=== PATIENT | female | born 1995 | race Caucasian/White ===

== ENCOUNTER 2016-06-13 09:40 | Emergency (ER) | payer OTHER ==
[~2016-06-13] VITALS: Ht 160 cm; Wt 108.0 kg
[~2016-06-13 09:40] MED LIST: ACYC800T57 PO; IBUP-1542 PO; METF500T4
[2016-06-13 10:14] VITALS: Ht 160 cm; Wt 108.0 kg
--- NOTE | 2016-06-13 12:15 | ERA ---
ER Documentation Chief Complaint Date/Time DATE: 06/13/16 TIME: 12:11 Chief Complaint LEFT ANKLE PAIN,SWELLING HPI This is a 21-year-old female who presents one day after twisting her ankle while walking. Patient reports that the ankle is painful worse with movement. Patient denies any swelling and has not taken any medications at this point to relieve the pain. Patient denies any other manifestations and does not have any other complaints this time. ROS All systems reviewed and are negative except as per history of present illness. Medications Home Meds Active Scripts Ibuprofen* (Motrin*) 600 Mg Tab, 600 MG PO Q6H Y for PAIN AND OR ELEVATED TEMP, #30 TAB Prov:JENNIFER STOKES PA-C 06/13/16 Ibuprofen* (Motrin*) 600 Mg Tab, 600 MG PO Q6, #20 TAB Prov:PRAMOD FRY PA-C 07/23/15 Acyclovir* (Zovirax*) 800 Mg Tablet, 400 MG PO TID for 10 Days, TAB Prov:PRAMOD FRY PA-C 07/23/15 Ibuprofen* (Motrin*) 600 Mg Tab, 600 MG PO Q6, #30 TAB Prov:JULIAN ROSE PA-C 03/20/15 Reported Medications Metformin* (Glucophage*) 500 Mg Tab 10/22/12 Allergies Allergies: Coded Allergies: No Known Allergy (Unverified , 10/22/12) PMhx/Soc History of Surgery: No Anesthesia Reaction: No Hx Neurological Disorder: No Hx Respiratory Disorders: No Hx Cardiac Disorders: No Hx Psychiatric Problems: No Hx Miscellaneous Medical Probl: Yes (diabetes) Hx Alcohol Use: No Hx Substance Use: No Hx Tobacco Use: No Physical Exam Vitals Vital Signs Date Time Temp Pulse Resp B/P Pulse Ox O2 Delivery O2 Flow Rate FiO2 06/13/16 10:14 98.5 67 18 133/81 98 Physical Exam Const: Morbidly obese 21-year-old female who is able to ambulate and stay in the [facility] on presentation Head: Atraumatic Eyes: Normal Conjunctiva ENT: Normal External Ears, Nose and Mouth. Neck: Full range of motion..~ No meningismus. Resp: Clear to auscultation bilaterally Cardio: Regular rate and rhythm, no murmurs Abd: Soft, non tender, non distended. Normal bowel sounds Skin: No petechiae or rashes Back: No midline or flank tenderness Ext: No cyanosis, or edema. There is mild tenderness palpation on the lateral aspect of the left ankle near the malleolus. Negative squeeze test for Achilles tendon rupture. Anterior drawer test of both ankles is unremarkable. There is no laxity and there is full range of motion in all directions the ankles bilaterally. Neur: Awake and alert. Neurovascularly intact bilaterally. Psych: Normal Mood and Affect Procedures/MDM 21-year-old overweight female presenting one day after twisting left ankle. Physical exam was unremarkable and neurovascularly intact. There is mild tenderness to palpation on the lateral aspect of the ankle around the malleolus. Achilles intact with a negative squeeze test. XR of the affected showed a small avulsion fracture at the lateral malleolus. At this time I am unable to rule out tendon or ligamentous injuries. The patient will be discharged with crutches and medication for pain/swelling. Will refer to an campaign specialist and have recommended that she follow-up with the primary care provider in the next 1-3 days. Departure Diagnosis: Primary Impression: Sprain and strain Additional Impressions: Left ankle sprain Qualified Code: S93.402A - Sprain of left ankle, unspecified ligament, initial encounter Mild ankle sprain Qualified Code: S93.402A - Mild ankle sprain, left, initial encounter Left malleolar fracture Qualified Code: S82.892A - Left malleolar fracture, closed, initial encounter Closed left malleolar fracture Qualified Code: S82.892A - Closed left malleolar fracture, initial encounter Condition: Stable Additional Instructions: Follow up with your PCP within the next 1-3 days for a more thorough evaluation and a possible referral to a specialist. Return the the emergency department immediately if symptoms worsen or change. If you have any questions regarding medications, ask your pharmacist or us before you leave. If any adverse reactions occur while taking your medications, discontinue the treatment and return to the emergency department immediately. Take your medications as directed, and complete the entire course of treatment. Follow-up with campaign specialist for further evaluation and possible imaging. JENNIFER STOKES PA-C Jun 13, 2016 12:15
--- NOTE | 2016-06-13 14:14 | RADRPT ---
PROCEDURE: XR Ankle. CLINICAL INDICATION: Ankle trauma/injury TECHNIQUE: AP, oblique and lateral views of the left ankle were performed. COMPARISON: None. FINDINGS: There is a small avulsion fracture at the tip of the lateral malleolus which is age indeterminate. The ankle mortise is symmetric. No gross soft tissue swelling is seen. IMPRESSION: Small avulsion fracture at the tip of the lateral malleolus, age indeterminate. RPTAT: VV .Marcelo Galindo MD, Date Time Electronically viewed and signed by .Marcelo Galindo MD, on 06/13/2016 14:14 .O/
[2016-06-13] MEDS ORDERED: IBUP-1542 PO (14:24)
== END 2016-06-13 15:05 | disposition home or self-care (01) ==
LOC: FTE 09:40
DX: S93.402A Sprain of unspecified ligament of left ankle, initial encounter (principal); S82.892A Other fracture of left lower leg, initial encounter for closed fracture; E11.9 Type 2 diabetes mellitus without complications; X50.1XXA Overexertion from prolonged static or awkward postures, initial encounter; Y92.9 Unspecified place or not applicable; Z79.84 Long term (current) use of oral hypoglycemic drugs
CPT/HCPCS: 29515; 73610; Z7502

== ENCOUNTER 2016-11-21 10:07 | Emergency (ER) | payer OTHER ==
[~2016-11-21] VITALS: Ht 157.5 cm; Wt 80.0 kg
[2016-11-21 10:10] VITALS: Ht 157.5 cm; Wt 80.0 kg
[2016-11-21] MEDS ORDERED: IBUPROFEN 600 MG TAB PO ONE (11:30)
[2016-11-21] MEDS ORDERED: LIDOCAINE 1% (MDV) 20 ML INJ SC ONE (11:30)
[2016-11-21] MEDS ORDERED: IBUP-1542 PO (12:02)
--- NOTE | 2016-11-21 12:04 | ERD ---
ER Documentation Chief Complaint Date/Time DATE: 11/21/16 TIME: 12:02 Chief Complaint LEFT BIG TOE PAIN HPI 21-year-old female complains of left big toe pain associated with the ingrown toenail for last week. She denies any fevers, vomiting, shortness breath or chest pain and no redness. She has a history of trauma. She denies any previous history of ingrown toenails. ROS All systems reviewed and are negative except as per history of present illness. Medications Home Meds Active Scripts Ibuprofen* (Motrin*) 600 Mg Tab, 600 MG PO Q6, #14 TAB Prov:ZAKIYA TATE MD 11/21/16 Ibuprofen* (Motrin*) 600 Mg Tab, 600 MG PO Q6H Y for PAIN AND OR ELEVATED TEMP, #30 TAB Prov:JENNIFER STOKES PA-C 06/13/16 Ibuprofen* (Motrin*) 600 Mg Tab, 600 MG PO Q6, #20 TAB Prov:PRAMOD FRY PA-C 07/23/15 Acyclovir* (Zovirax*) 800 Mg Tablet, 400 MG PO TID for 10 Days, TAB Prov:PRAMOD FRY PA-C 07/23/15 Ibuprofen* (Motrin*) 600 Mg Tab, 600 MG PO Q6, #30 TAB Prov:JULIAN ROSE PA-C 03/20/15 Reported Medications Metformin* (Glucophage*) 500 Mg Tab 10/22/12 Allergies Allergies: Coded Allergies: No Known Allergy (Unverified , 10/22/12) PMhx/Soc History of Surgery: No Anesthesia Reaction: No Hx Neurological Disorder: No Hx Respiratory Disorders: No Hx Cardiac Disorders: No Hx Psychiatric Problems: No Hx Miscellaneous Medical Probl: Yes (diabetes) Hx Alcohol Use: No Hx Substance Use: No Hx Tobacco Use: No Physical Exam Vitals Vital Signs Date Time Temp Pulse Resp B/P Pulse Ox O2 Delivery O2 Flow Rate FiO2 11/21/16 10:10 98.1 77 20 126/77 99 Physical Exam Const: [] Alert, [id number]. Head: Atraumatic Eyes: Normal Conjunctiva ENT: Normal External Ears, Nose and Mouth. Neck: Full range of motion..~ No meningismus. Resp: Clear to auscultation bilaterally Cardio: Regular rate and rhythm, no murmurs Abd: Soft, non tender, non distended. Normal bowel sounds Skin: No petechiae or rashes Back: No midline or flank tenderness Ext: No cyanosis, or edema redness and slight swelling and irritation around the medial aspect of the left great toe. No bony tenderness or deformities. Neur: Awake and alert Psych: Normal Mood and Affect Results 24 hrs Current Medications Medications (Trade) Dose Ordered Sig/Suze Route PRN Reason Start Time Stop Time Status Last Admin Dose Admin Lidocaine (Xylocaine 1% (Mdv) 20 ml) 20 ml ONCE ONCE SC 11/21/16 11:30 11/21/16 11:31 DC Ibuprofen (Motrin) 600 mg ONCE ONCE PO 11/21/16 11:30 11/21/16 11:31 DC 11/21/16 11:45 Procedures/MDM Resents with signs and symptoms of left big ingrown toenail without signs or symptoms of abscess, osteomyelitis, fracture, dislocation. Procedure note-left big toe was prepped with Betadine. 2 cc of lidocaine was used to perform digital block. Anesthesia was obtained. Using clamps and scissors the ingrown portion of nail was removed and patient tolerated procedure well and wound was dressed. Patient will be discharged home with wound care and return precautions and primary care follow-up. Departure Diagnosis: Primary Impression: Ingrowing nail Condition: Stable Patient Instructions: Ingrown Toenail, Excised Additional Instructions: Recheck for new or worsening symptoms-redness, swelling, fevers, new symptoms. ZAKIYA TATE MD Nov 21, 2016 12:03
== END 2016-11-21 12:36 | disposition home or self-care (01) ==
LOC: FTE 10:07
DX: L60.0 Ingrowing nail (principal); E11.9 Type 2 diabetes mellitus without complications; Z79.84 Long term (current) use of oral hypoglycemic drugs
CPT/HCPCS: 11765; Z7502; Z7610

== ENCOUNTER 2016-12-17 21:34 | Emergency (ER) | payer OTHER ==
[~2016-12-17] VITALS: Ht 165.1 cm; Wt 110.0 kg
[2016-12-17 21:38] VITALS: Ht 165.1 cm; Wt 110.0 kg
--- NOTE | 2016-12-18 00:46 | ERD ---
ER Documentation Chief Complaint Chief Complaint mid back pain x 2 weeks, denies trauma HPI Patient is a 21-year-old female who presents emergency department for concerns of mid to lower back pain 1 week. Patient states she was playing with her brothers when she pushed him away and fell backwards 2 days ago. Patient states when she fell backwards this caused her to have more pain. Patient reports falling on her back as well as buttocks. Patient denies any radiation of the pain down her legs. Patient states she has been using icy hot. Patient denies taking any pain medication. Patient denies any saddle anesthesia, urinary clots, stool incontinence, fever, chills, dysuria, hematuria or loss of consciousness. ROS All systems reviewed and are negative except as per history of present illness. Medications Home Meds Active Scripts Baclofen* (Baclofen*) 10 Mg Tablet, 10 MG PO Q8, #10 TAB Prov:ANJELICA CLOUD PA-C 12/18/16 Ibuprofen* (Motrin*) 600 Mg Tab, 600 MG PO Q6, #30 TAB Prov:ANJELICA CLOUD PA-C 12/18/16 Ibuprofen* (Motrin*) 600 Mg Tab, 600 MG PO Q6, #14 TAB Prov:ZAKIYA TATE MD 11/21/16 Ibuprofen* (Motrin*) 600 Mg Tab, 600 MG PO Q6H Y for PAIN AND OR ELEVATED TEMP, #30 TAB Prov:RORY STOKES PA-C 06/13/16 Ibuprofen* (Motrin*) 600 Mg Tab, 600 MG PO Q6, #20 TAB Prov:PRAMOD FRY PA-C 07/23/15 Acyclovir* (Zovirax*) 800 Mg Tablet, 400 MG PO TID for 10 Days, TAB Prov:PRAMOD FRY PA-C 07/23/15 Ibuprofen* (Motrin*) 600 Mg Tab, 600 MG PO Q6, #30 TAB Prov:JULIAN ROSE PA-C 03/20/15 Reported Medications Metformin* (Glucophage*) 500 Mg Tab 10/22/12 Allergies Allergies: Coded Allergies: No Known Allergy (Unverified , 12/17/16) PMhx/Soc History of Surgery: No Anesthesia Reaction: No Hx Neurological Disorder: No Hx Respiratory Disorders: No Hx Cardiac Disorders: No Hx Psychiatric Problems: No Hx Miscellaneous Medical Probl: Yes (DM) Hx Alcohol Use: No Hx Substance Use: No Hx Tobacco Use: No Smoking Status: Never smoker FmHx Family History: No diabetes Physical Exam Vitals Vital Signs Date Time Temp Pulse Resp B/P Pulse Ox O2 Delivery O2 Flow Rate FiO2 12/17/16 21:38 97.9 90 20 131/78 99 Physical Exam GENERAL: Well-developed, well-nourished female. Appears in no acute distress. HEAD: Normocephalic, atraumatic. EYES: Pupils are equally reactive bilaterally. EOMs grossly intact. No conjunctival erythema. ENT: Moist mucous membranes. No uvula deviation. No kissing tonsils. NECK: Supple. No meningismus. Normal range of motion of the neck. Cervical midline tenderness noted. LUNG: Clear to auscultation bilaterally. No rhonchi, wheezing, rales or coarse breath sounds. HEART: Regular rate and rhythm. No murmurs, rubs or gallops. BACK: No midline tenderness. Tender to palpation in the bilateral thoracic and lumbar paraspinal muscles. EXTREMITIES: Equal pulses bilaterally. No peripheral clubbing, cyanosis or edema. No unilateral leg swelling. NEUROLOGIC: Alert and oriented. Moving all four extremities without any difficulty. Normal speech. Steady gait. SKIN: Normal color. Warm and dry. No rashes or lesions. Procedures/MDM ED COURSE: The patient was stable throughout ED course. I kept the patient and/or family informed of laboratory and diagnostic imaging results throughout the ED course. DIAGNOSTIC IMAGING: Read by radiologist. DIAGNOSTIC IMAGING REPORT Patient: JANET GATICA : 1995 Age: 21 Sex: F MR #: [id number] [facility] #: [id number] DOS: 12/18/16 0037 Ordering MD: ANJELICA CLOUD PA-C Location: [facility] Room/Bed: PROCEDURE: XR Lumbar Spine. CLINICAL INDICATION: Pain. TECHNIQUE: Three views of the lumbar spine are available for review COMPARISON: None available FINDINGS: No fracture is identified. There is maintenance of height of the vertebral bodies. Alignment is maintained; there is no spondylolisthesis. Pedicles are intact. No degenerative changes are identified. Bony mineralization is within normal limits. Soft tissues are unremarkable. IMPRESSION: 1. Unremarkable lumbar spine x-ray series. RPTAT: HMVK .Rory Gautam MD, MD Date Time Electronically viewed and signed by .Rory Gautam MD, MD on 12/18/2016 01:44 .K/ CC: ANJELICA CLOUD PA-C DIAGNOSTIC IMAGING REPORT Patient: JANET GATICA : 1995 Age: 21 Sex: F MR #: [id number] DOS: 12/18/16 0037 Ordering MD: ANJELICA CLOUD PA-C Location: [facility] Room/Bed: PROCEDURE: Thoracic Spine. CLINICAL INDICATION: Pain TECHNIQUE: Three views of the thoracic spine are available for review. COMPARISON: None available FINDINGS: No fracture is identified. There is maintenance of height of the vertebral bodies. Alignment is maintained. There is no spondylolisthesis. There is mild endplate hypertrophic changes lower thoracic spine. Bone mineralization is within normal limits. Soft tissues are unremarkable. IMPRESSION: 1. No acute abnormality. 2. Mild degenerative changes of the lower thoracic spine endplates. RPTAT: HMVK .Rory Gautam MD, MD Date Time Electronically viewed and signed by .Rory Gautam MD, MD on 12/18/2016 01:43 .K/ CC: ANJELICA CLOUD PA-C MEDICAL DECISION MAKING: This is 21-year-old female who presents to the ED for concerns of back pain 1 week. Patient states she recently fell backwards while playing around with her brothers and landed on her back 2 days ago. Vital signs were reviewed. Patient was afebrile. Patient denied any saddle anesthesia, urinary incontinence, bowel incontinence, dysuria. Given that patient did report trauma x-ray imaging was obtained. Thoracic and lumbar x-ray imaging were unremarkable. Urine test was negative. Given these findings, the patients presentation is most consistent with facet versus lumbar strain. I have a much lower clinical concern for cauda equine syndrome, spinal fractures, epidural abscess, spinal metastases, osteomyelitis, aortic dissection, ruptured or leaking AA, DJD , sciatica, pyelonephritis or nephrolithiasis. PRESCRIPTIONS: Ibuprofen Baclofen DISCHARGE: At this time, patient is stable for discharge and outpatient management. RICE therapy and ROM exercises were advised to avoid stiffness. I have instructed the patient to follow-up with his/her primary care physician in 1-2 days. I have discussed with the patient the possibility of needing to see an volunteer specialist for further workup and imaging if the pain persists. I have instructed the patient to promptly return to the ER for any new or worsening symptoms including increased pain, swelling, warmth, urinary incontinence, stool incontinence, weakness or numbness. The patient and/or family expressed understanding of and agreement with this plan. All questions were answered. Home care instructions were provided. Disclaimer: Inadvertent spelling and grammatical errors are likely due to EHR/ dictation software use and do not reflect on the overall quality of patient care. Also, please note that the electronic time recorded on this note does not necessarily reflect the actual time of the patient encounter. Departure Diagnosis: Primary Impression: Back pain Back pain location: back pain in unspecified location Chronicity: unspecified Back pain laterality: unspecified Qualified Code: M54.9 - Back pain, unspecified back location, unspecified back pain laterality, unspecified chronicity Condition: Stable Patient Instructions: Back Pain (Acute Or Chronic) Referrals: GREGORY BERNARD (PCP) Additional Instructions: Call your primary care doctor TOMORROW for an appointment during the next 1-2 days.See the doctor sooner or return here if your condition worsens before your appointment time. ANJELICA CLOUD PA-C Dec 18, 2016 00:46
--- NOTE | 2016-12-18 01:43 | RADRPT ---
PROCEDURE: Thoracic Spine. CLINICAL INDICATION: Pain TECHNIQUE: Three views of the thoracic spine are available for review. COMPARISON: None available FINDINGS: No fracture is identified. There is maintenance of height of the vertebral bodies. Alignment is m aintained. There is no spondylolisthesis. There is mild endplate hypertrophic changes lower thorac ic spine. Bone mineralization is within normal limits. Soft tissues are unremarkable. IMPRESSION: 1. No acute abnormality. 2. Mild degenerative changes of the lower thoracic spine endplates. RPTAT: HMVK .Rory Gautam MD, Date Time Electronically viewed and signed by .Rory Gautam MD, on 12/18/2016 01:43 .K/
--- NOTE | 2016-12-18 01:44 | RADRPT ---
PROCEDURE: XR Lumbar Spine. CLINICAL INDICATION: Pain. TECHNIQUE: Three views of the lumbar spine are available for review COMPARISON: None available FINDINGS: No fracture is identified. There is maintenance of height of the vertebral bodies. Alignment is ma intained; there is no spondylolisthesis. Pedicles are intact. No degenerative changes are identifi ed. Bony mineralization is within normal limits. Soft tissues are unremarkable. IMPRESSION: 1. Unremarkable lumbar spine x-ray series. RPTAT: HMVK .Rory Gautam MD, Date Time Electronically viewed and signed by .Rory Gautam MD, on 12/18/2016 01:44 .K/
[2016-12-18] MEDS ORDERED: IBUP-1542 PO (01:50)
[2016-12-18] MEDS ORDERED: BACL10TA PO (01:50)
== END 2016-12-18 02:08 | disposition home or self-care (01) ==
LOC: FTE 21:34
DX: M54.5 Low back pain (principal); M54.6 Pain in thoracic spine; E11.9 Type 2 diabetes mellitus without complications; Z79.84 Long term (current) use of oral hypoglycemic drugs
CPT/HCPCS: 72072; 72100; Z7502

== ENCOUNTER 2016-12-31 20:50 | Emergency (ER) | payer OTHER ==
[~2016-12-31] VITALS: Ht 162.6 cm; Wt 111.8 kg
[~2016-12-31 20:50] MED LIST changes: +BACL10TA PO
[2016-12-31 20:56] VITALS: Ht 162.6 cm; Wt 111.8 kg
[2016-12-31] MEDS ORDERED: HYDROCODONE/APAP (5/325) TAB PO ONE (22:30)
--- NOTE | 2016-12-31 23:01 | RADRPT ---
PROCEDURE: XR Shoulder. CLINICAL INDICATION: Right shoulder pain. TECHNIQUE: Three views of the right shoulder. COMPARISON: None available FINDINGS: There is no acute fracture or dislocation. The joint spaces are preserved. The coracoclavicular in terval is normal. The visualized right lung is clear. IMPRESSION: 1. No acute fracture or dislocation of the right shoulder. RPTAT: HTAR .Saqib Ortiz MD, MD Date Time Electronically viewed and signed by .Saqib Ortiz MD, on 12/31/2016 23:00 .R/
--- NOTE | 2016-12-31 23:18 | ERD ---
ER Documentation Chief Complaint Chief Complaint right shoulder pain x 4 days. denies injury HPI 21-year-old female presents with a chief complaint of right shoulder pain 4 days. States that she hit it against a car door within the past week but does not remember specifically which day. Has not taken any medications for the symptoms. Refuses medications in the emergency department. No aggravating or alleviating factors. Had a fracture of the right shoulder when she was a child. Has not had pain of the right shoulder until 4 days ago. Denies numbness, tingling, loss of range of motion. Patient has no other complaints and describes no other associated manifestations. ROS All systems reviewed and are negative except as per history of present illness. Medications Home Meds Active Scripts Baclofen* (Baclofen*) 10 Mg Tablet, 10 MG PO Q8, #10 TAB Prov:ANJELICA CLOUD PA-C 12/18/16 Ibuprofen* (Motrin*) 600 Mg Tab, 600 MG PO Q6, #30 TAB Prov:ANJELICA CLOUD PA-C 12/18/16 Ibuprofen* (Motrin*) 600 Mg Tab, 600 MG PO Q6, #14 TAB Prov:ZAKIYA TATE MD 11/21/16 Ibuprofen* (Motrin*) 600 Mg Tab, 600 MG PO Q6H Y for PAIN AND OR ELEVATED TEMP, #30 TAB Prov:JENNIFER SOTKES PA-C 06/13/16 Ibuprofen* (Motrin*) 600 Mg Tab, 600 MG PO Q6, #20 TAB Prov:PRAMOD FRY PA-C 07/23/15 Acyclovir* (Zovirax*) 800 Mg Tablet, 400 MG PO TID for 10 Days, TAB Prov:PRAMOD FRY PA-C 07/23/15 Ibuprofen* (Motrin*) 600 Mg Tab, 600 MG PO Q6, #30 TAB Prov:JULIAN ROSE PA-C 03/20/15 Reported Medications Metformin* (Glucophage*) 500 Mg Tab 10/22/12 Allergies Allergies: Coded Allergies: No Known Allergy (Unverified , 12/31/16) PMhx/Soc History of Surgery: No Anesthesia Reaction: No Hx Neurological Disorder: No Hx Respiratory Disorders: No Hx Cardiac Disorders: No Hx Psychiatric Problems: No Hx Miscellaneous Medical Probl: Yes (DM) Hx Alcohol Use: Yes (occasional) Hx Substance Use: No Hx Tobacco Use: No Smoking Status: Never smoker Physical Exam Vitals Vital Signs Date Time Temp Pulse Resp B/P Pulse Ox O2 Delivery O2 Flow Rate FiO2 12/31/16 20:56 97.6 86 20 155/96 99 Physical Exam Const: [] Head: Atraumatic Eyes: Normal Conjunctiva ENT: Normal External Ears, Nose and Mouth. Neck: Full range of motion..~ No meningismus. Resp: Clear to auscultation bilaterally Cardio: Regular rate and rhythm, no murmurs Abd: Soft, non tender, non distended. Normal bowel sounds Skin: No petechiae or rashes Back: No midline or flank tenderness Ext: No cyanosis or edema. Full range of motion. Mild pain with palpation of the anterior humeral joint and abduction of shoulder joint. No impingement palpated. No pain with passive range of motion. No AC joint tenderness. Neur: Awake and alert Psych: Normal Mood and Affect Results 24 hrs Current Medications Medications (Trade) Dose Ordered Sig/Suze Route PRN Reason Start Time Stop Time Status Last Admin Dose Admin Acetaminophen/ Hydrocodone Bitart ([place] (5/325)) 1 tab ONCE ONCE PO 12/31/16 22:30 12/31/16 22:31 DC 12/31/16 22:28 Procedures/MDM Otherwise healthy 21-year-old female presenting with a chief complaint of right shoulder pain. Trauma 4 days ago. X-ray was obtained and was read by the radiologist and revealed the following impression: Unremarkable. Refused pain medications in the ED. Most likely diagnosis is soft tissue injury of the right shoulder. I have little suspicion for bony pathology or neurovascular compromise. I have spoke with the patient regarding their condition and future management. They have verbally responded that they understand their status and treatment plan. The patients vitals are stable, and their current condition is appropriate for discharge. The patient will be given discharge instructions with return precautions. Departure Diagnosis: Primary Impression: Shoulder injury Encounter type: initial encounter Laterality: right Qualified Code: S49.91XA - Injury of right shoulder, initial encounter Additional Impression: Shoulder pain Chronicity: acute Laterality: right Qualified Code: M25.511 - Acute pain of right shoulder Condition: Stable Patient Instructions: Shoulder Problems Referrals: GREGORY BERNARD (PCP) Additional Instructions: Follow up with your PCP within the next 1-3 days for a more thorough evaluation and a possible referral to a specialist. Return the the emergency department immediately if symptoms worsen or change. If you have any questions regarding medications, ask your pharmacist or us before you leave. If any adverse reactions occur while taking your medications, discontinue the treatment and return to the emergency department immediately. Take your medications as directed, and complete the entire course of treatment. JENNIFER STOKES PA-C Dec 31, 2016 23:18
[2017-01-01 00:20] VITALS: BP 121/78; PULSE 86; RESP 18; TEMP 98.4
== END 2017-01-01 00:20 | disposition home or self-care (01) ==
LOC: FTE 20:50
DX: S49.91XA Unspecified injury of right shoulder and upper arm, initial encounter (principal); E11.9 Type 2 diabetes mellitus without complications; W22.8XXA Striking against or struck by other objects, initial encounter; Y92.810 Car as the place of occurrence of the external cause; Z79.84 Long term (current) use of oral hypoglycemic drugs
CPT/HCPCS: 73030; Z7502; Z7610

== ENCOUNTER 2017-01-24 21:00 | Emergency (ER) | payer OTHER ==
[~2017-01-24] VITALS: Ht 162.6 cm; Wt 108.0 kg
[2017-01-24 21:04] VITALS: Ht 162.6 cm; Wt 108.0 kg
--- NOTE | 2017-01-24 22:27 | ERD ---
ER Documentation Chief Complaint Chief Complaint knee pain since 2 hrs ago after bending over; pt c/o diff walking ROS All systems reviewed and are negative except as per history of present illness. Medications Home Meds Active Scripts Baclofen* (Baclofen*) 10 Mg Tablet, 10 MG PO Q8, #10 TAB Prov:ANJELICA CLOUD PA-C 12/18/16 Ibuprofen* (Motrin*) 600 Mg Tab, 600 MG PO Q6, #30 TAB Prov:ANJELICA CLOUD PA-C 12/18/16 Ibuprofen* (Motrin*) 600 Mg Tab, 600 MG PO Q6, #14 TAB Prov:ZAKIYA TATE MD 11/21/16 Ibuprofen* (Motrin*) 600 Mg Tab, 600 MG PO Q6H Y for PAIN AND OR ELEVATED TEMP, #30 TAB Prov:JENNIFER STOKES PA-C 06/13/16 Ibuprofen* (Motrin*) 600 Mg Tab, 600 MG PO Q6, #20 TAB Prov:PRAMOD FRY PA-C 07/23/15 Acyclovir* (Zovirax*) 800 Mg Tablet, 400 MG PO TID for 10 Days, TAB Prov:PRAMOD FRY PA-C 07/23/15 Ibuprofen* (Motrin*) 600 Mg Tab, 600 MG PO Q6, #30 TAB Prov:JULIAN ROSE PA-C 03/20/15 Reported Medications Metformin* (Glucophage*) 500 Mg Tab 10/22/12 Allergies Allergies: Coded Allergies: No Known Allergy (Unverified , 12/31/16) PMhx/Soc History of Surgery: No Anesthesia Reaction: No Hx Neurological Disorder: No Hx Respiratory Disorders: No Hx Cardiac Disorders: No Hx Psychiatric Problems: No Hx Miscellaneous Medical Probl: Yes (DM) Hx Alcohol Use: Yes (occasional) Hx Substance Use: No Hx Tobacco Use: No Physical Exam Vitals Vital Signs Date Time Temp Pulse Resp B/P Pulse Ox O2 Delivery O2 Flow Rate FiO2 01/24/17 21:04 98.1 89 20 123/70 98 Physical Exam Const: [] Head: Atraumatic Eyes: Normal Conjunctiva ENT: Normal External Ears, Nose and Mouth. Neck: Full range of motion..~ No meningismus. Resp: Clear to auscultation bilaterally Cardio: Regular rate and rhythm, no murmurs Abd: Soft, non tender, non distended. Normal bowel sounds Skin: No petechiae or rashes Back: No midline or flank tenderness Ext: No cyanosis, or edema Neur: Awake and alert Psych: Normal Mood and Affect JENNIFER MUELLER MD Jan 24, 2017 22:27
[2017-01-24] MEDS ORDERED: IBUPROFEN 800 MG TAB PO ONE (23:00)
--- NOTE | 2017-01-24 23:50 | RADRPT ---
PROCEDURE: XR Tibia and Fibula. CLINICAL INDICATION: Right lateral fink pain. TECHNIQUE: AP and lateral views of the right tibia and fibula. COMPARISON: None available. FINDINGS: No fracture or dislocation is identified. The joint spaces are unremarkable. There is no significa nt soft tissue swelling. IMPRESSION: 1. No fracture or dislocation of the right tibia and fibula. RPTAT: HTAR .Saqib Ortiz MD, MD Date Time Electronically viewed and signed by .Saqib Ortiz MD, on 01/24/2017 23:49 .R/
--- NOTE | 2017-01-24 23:52 | RADRPT ---
PROCEDURE: XR Knee. CLINICAL INDICATION: Pain. TECHNIQUE: Three views of the right knee are available for review. COMPARISON: None available FINDINGS: There is no fracture. Joint relationships are maintained. Bone mineralization is within normal bhat its. A suprapatellar joint effusion is likely. Soft tissues are otherwise unremarkable. IMPRESSION: 1. Probable suprapatellar joint effusion. 2. No acute fracture or dislocation is seen. RPTAT: HMVK .Rory Gautam MD, Date Time Electronically viewed and signed by .Rory Gautam MD, on 01/24/2017 23:51 .K/
[2017-01-25] MEDS ORDERED: IBUP-1542 PO (00:12)
--- NOTE | 2017-01-25 00:16 | ERD ---
ER Documentation Chief Complaint Chief Complaint knee pain since 2 hrs ago after bending over; pt c/o diff walking HPI 21-year-old female patient with no significant past medical history presents to the ED complaining of a right knee injury 2 hours prior to arrival. Reports that she was bending over and actually felt like she heard a crack in her right knee and felt like she twisted it. Patient describes the pain as "it hurts really bad and feels tight". Rates her pain a 9 out of 10. Denies any weakness , numbness or tingling, fever, chills, loss of sensation, loss of range of motion. ROS All systems reviewed and are negative except as per history of present illness. Medications Home Meds Active Scripts Ibuprofen* (Motrin*) 600 Mg Tab, 600 MG PO Q6, #30 TAB Prov:TIMOTHY CAMPOS PA-C 01/25/17 Baclofen* (Baclofen*) 10 Mg Tablet, 10 MG PO Q8, #10 TAB Prov:ANJELICA CLOUD PA-C 12/18/16 Ibuprofen* (Motrin*) 600 Mg Tab, 600 MG PO Q6, #30 TAB Prov:ANJELICA CLOUD PA-C 12/18/16 Ibuprofen* (Motrin*) 600 Mg Tab, 600 MG PO Q6, #14 TAB Prov:ZAKIYA TATE MD 11/21/16 Ibuprofen* (Motrin*) 600 Mg Tab, 600 MG PO Q6H Y for PAIN AND OR ELEVATED TEMP, #30 TAB Prov:JENNIFER STOKES PA-C 06/13/16 Ibuprofen* (Motrin*) 600 Mg Tab, 600 MG PO Q6, #20 TAB Prov:PRAMOD FRY PA-C 07/23/15 Acyclovir* (Zovirax*) 800 Mg Tablet, 400 MG PO TID for 10 Days, TAB Prov:PRAMOD FRY PA-C 07/23/15 Ibuprofen* (Motrin*) 600 Mg Tab, 600 MG PO Q6, #30 TAB Prov:JULIAN ROSE PA-C 03/20/15 Reported Medications Metformin* (Glucophage*) 500 Mg Tab 10/22/12 Allergies Allergies: Coded Allergies: No Known Allergy (Unverified , 12/31/16) PMhx/Soc Medical and Surgical Hx: pt denies Surgical Hx History of Surgery: No Anesthesia Reaction: No Hx Neurological Disorder: No Hx Respiratory Disorders: No Hx Cardiac Disorders: No Hx Psychiatric Problems: No Hx Miscellaneous Medical Probl: Yes (DM) Hx Alcohol Use: Yes (Occasional) Hx Substance Use: No Hx Tobacco Use: No Smoking Status: Never smoker Physical Exam Vitals Vital Signs Date Time Temp Pulse Resp B/P Pulse Ox O2 Delivery O2 Flow Rate FiO2 01/24/17 21:04 98.1 89 20 123/70 98 Physical Exam Const: [id number], well-nourished. In no acute distress. Head: Atraumatic, normocephalic Eyes: Normal Conjunctiva without injection ENT: Normal external ear, nose and mouth. Neck: Full range of motion. No meningismus. Resp: Clear to auscultation bilaterally. No wheezing, rhonchi, rales, or crackles. No accessory muscle use. No retractions. Cardio: Regular rate and rhythm, no murmurs Skin: No petechiae or rashes Back: No midline tenderness. No CVA tenderness. Ext: No cyanosis, or edema. Cap refill less than 2 seconds. Distal pulses intact bilaterally. Tender to palpation of the right infrapatellar region. No erythema or edema. No warmth to touch. Limited range of motion due to pain. Neur: Awake and alert. Limping gait due to right knee pain. Normal coordination. Muscle strength 5/5. Sensation intact bilaterally. Psych: Normal Mood and Affect Results 24 hrs Current Medications Medications (Trade) Dose Ordered Sig/Suze Route PRN Reason Start Time Stop Time Status Last Admin Dose Admin Ibuprofen (Motrin) 800 mg ONCE ONCE PO 01/24/17 23:00 01/24/17 23:01 DC 01/24/17 23:58 Procedures/MDM 21-year-old female patient with no significant past medical history presents to the ED complaining of right knee injury. Patient is afebrile and nontoxic- appearing. Patient normal vital signs. Patient was ordered a right knee, tib- fib x-ray was ordered to further evaluate patient. Patient given ibuprofen with improvement of her pain. PROCEDURE: XR Knee. CLINICAL INDICATION: Pain. TECHNIQUE: Three views of the right knee are available for review. COMPARISON: None available FINDINGS: There is no fracture. Joint relationships are maintained. Bone mineralization is within normal limits. A suprapatellar joint effusion is likely. Soft tissues are otherwise unremarkable. IMPRESSION: 1. Probable suprapatellar joint effusion. 2. No acute fracture or dislocation is seen. PROCEDURE: XR Tibia and Fibula. CLINICAL INDICATION: Right lateral fink pain. TECHNIQUE: AP and lateral views of the right tibia and fibula. COMPARISON: None available. FINDINGS: No fracture or dislocation is identified. The joint spaces are unremarkable. There is no significant soft tissue swelling. IMPRESSION: 1. No fracture or dislocation of the right tibia and fibula. Patient is placed in a right knee immobilizer. Crutches were given to patient to help with ambulation. Splint Assessment: Neurovascularly intact pre and post splint placement with good fit. She was noted to have a suprapatellar joint effusion. Patient's extremity symptoms have stabilized while they have been evaluated in the department and are appropriate for outpatient follow up. No evidence of fractures, dislocations , compartment syndrome, neurologic injury, vascular injury, open joint, open fracture, tendon laceration, septic arthritis, osteomyelitis, DVT, foreign body , or other emergent conditions. Discharge medications: Ibuprofen Follow up with primary care physician in 1-2 days for a referral to see an orthopedic physician. Instructed patient to return to the ED sooner for any worsening symptoms. Patient's questions were answered. Patient understood and agreed with discharge plan. Patient discharged stable. Departure Diagnosis: Primary Impression: Knee injury Encounter type: initial encounter Laterality: right Qualified Code: S89.91XA - Injury of right knee, initial encounter Condition: Stable Patient Instructions: Reducing Knee Pain and Swelling, Knee Pain, Meniscus Injury (Possible), Knee Pain, Uncertain Cause Referrals: GREGORY BERNARD (PCP) [facility] YOU HAVE RECEIVED A MEDICAL SCREENING EXAM AND THE RESULTS INDICATE THAT YOU DO NOT HAVE A CONDITION THAT REQUIRES URGENT TREATMENT IN THE EMERGENCY DEPARTMENT. FURTHER EVALUATION AND TREATMENT OF YOUR CONDITION CAN WAIT UNTIL YOU ARE SEEN IN YOUR DOCTORS OFFICE WITHIN THE NEXT 1-2 DAYS. IT IS YOUR RESPONSIBILITY TO MAKE AN APPOINTMENT FOR FOLOW-UP CARE. IF YOU HAVE A PRIMARY DOCTOR --you should call your primary doctor and schedule an appointment IF YOU DO NOT HAVE A PRIMARY DOCTOR YOU CAN CALL OUR PHYSICIAN REFERRAL HOTLINE AT IF YOU CAN NOT AFFORD TO SEE A PHYSICIAN YOU CAN CHOSE FROM THE FOLLOWING [facility] [address] [facility] [address] [facility] [address] [facility] [address] [facility] [address] [facility]. [facility]. [address] [facility]. [facility] YOU HAVE RECEIVED A MEDICAL SCREENING EXAM AND THE RESULTS INDICATE THAT YOU DO NOT HAVE A CONDITION THAT REQUIRES URGENT TREATMENT IN THE EMERGENCY DEPARTMENT. FURTHER EVALUATION AND TREATMENT OF YOUR CONDITION CAN WAIT UNTIL YOU ARE SEEN IN YOUR DOCTORS OFFICE WITHIN THE NEXT 1-2 DAYS. IT IS YOUR RESPONSIBILITY TO MAKE AN APPOINTMENT FOR FOLOW-UP CARE. IF YOU HAVE A PRIMARY DOCTOR --you should call your primary doctor and schedule and appointment IF YOU DO NOT HAVE A PRIMARY DOCTOR YOU CAN CALL OUR PHYSICIAN REFERRAL HOTLINE AT . IF YOU CAN NOT AFFORD TO SEE A PHYSICIAN YOU CAN CHOSE FROM THE FOLLOWING [facility] INSTITUTIONS: [facility] [address] [place] [address] [facility] [address] [place] [address] [facility] [address] [place] [address] [facility] URGENT CARE/SPECIALTIES Additional Instructions: Call your primary care doctor TOMORROW for an appointment during the next 1-2 days for a referral to see an orthopedic physician. See the doctor sooner or return here if your condition worsens before your appointment time. TIMOTHY CAMPOS PA-C Jan 25, 2017 00:16
== END 2017-01-25 00:51 | disposition home or self-care (01) ==
LOC: FTE 21:00
DX: S89.91XA Unspecified injury of right lower leg, initial encounter (principal); E11.9 Type 2 diabetes mellitus without complications; X50.9XXA Other and unspecified overexertion or strenuous movements or postures, initial encounter; Y92.9 Unspecified place or not applicable; Z79.84 Long term (current) use of oral hypoglycemic drugs
CPT/HCPCS: 29505; 73562; 73590; Z7502; Z7610

== ENCOUNTER 2017-03-07 13:05 | Emergency (ER) | END 2017-03-07 16:14 | disposition home or self-care (01) ==

== ENCOUNTER 2017-04-16 08:06 | Day surgery (SDC) | END 2017-04-16 10:30 | disposition home or self-care (01) ==

== ENCOUNTER 2017-05-28 23:42 | Emergency (ER) | END 2017-05-29 03:40 | disposition left against medical advice (07) ==

== ENCOUNTER 2017-09-13 19:22 | Emergency (ER) | END 2017-09-13 22:08 | disposition home or self-care (01) ==

== ENCOUNTER 2018-05-15 08:44 | Emergency (ER) | payer OTHER ==
[~2018-05-15] VITALS: Ht 165.1 cm; Wt 105.0 kg
[~2018-05-15 08:44] MED LIST changes: +ACYC400T2 PO; -ACYC800T57 PO; -BACL10TA PO; +FLUC150T PO; -IBUP-1542 PO; +METF500T24 PO; -METF500T4
[2018-05-15 08:46] VITALS: BP 123/80; PULSE 89; RESP 18; Ht 165.1 cm; Wt 105.0 kg
[2018-05-15] MEDS ORDERED: AMOX1TAB10 PO (10:29)
[2018-05-15] MEDS ORDERED: IBUP800T48 PO (10:29)
--- NOTE | 2018-05-15 11:19 | ERD ---
ER Documentation Chief Complaint Chief Complaint Throat pain x 4 days HPI 23-year-old female presenting with sore throat times 4 days. Patient has had no fevers. Patient has not taken medications for pain. She states she has pain with swallowing. Denies any cough or runny nose. Denies other medical problems. NKDA. Surgical history denies. Social history denies ROS All systems reviewed and are negative except as per history of present illness. Medications Home Meds Active Scripts Ibuprofen* (Motrin*) 800 Mg Tab, 800 MG PO Q6, #30 TAB Prov:KENNETH FELIPE PA-C 05/15/18 Amoxicillin/Potassium Clav (Amox-Clav 875-125 mg Tablet) 875-125 mg Tab, 1 TAB PO BID for 7 Days, #14 TAB Prov:KENNETH FELIPE PA-C 05/15/18 Fluconazole* (Diflucan*) 150 Mg Tablet, 150 MG PO ONCE, #1 TAB Prov:BETTY,JUVENCIO 09/13/17 Acyclovir* (Acyclovir*) 400 Mg Tablet, 400 MG PO TID for 5 Days, #15 TAB Prov:BETTY,JUVENCIO 09/13/17 Reported Medications Metformin Hcl* (Metformin Hcl*) 500 Mg Tablet, 500 MG PO WITH BREAKFAST DINNE, #30 TAB 04/16/17 Allergies Allergies: Coded Allergies: No Known Allergy (Unverified , 04/16/17) PMhx/Soc Medical and Surgical Hx: pt denies Medical Hx, pt denies Surgical Hx History of Surgery: No Anesthesia Reaction: No Hx Neurological Disorder: No Hx Respiratory Disorders: No Hx Cardiac Disorders: No Hx Psychiatric Problems: No Hx Miscellaneous Medical Probl: No Hx Alcohol Use: Yes (socially) Hx Substance Use: No Hx Tobacco Use: No Smoking Status: Never smoker FmHx Family History: No diabetes, No coronary disease, No other Physical Exam Vitals Vital Signs Date Temp Pulse Resp B/P (MAP) Pulse Ox O2 O2 Flow FiO2 Time Delivery Rate 05/15/18 98.8 89 18 123/80 98 08:46 (94) Physical Exam GENERAL: The patient is well-appearing, well-nourished, in no acute distress HEENT: Atraumatic. Conjunctivae are pink. Pupils equal, round, and reactive to light. There is no scleral icterus. Tympanic membranes clear bilaterally. Oropharynx erythematous bilaterally mild swelling. Uvula midline. Questionable exudate noted of the tonsils. Airway patent. NECK: C-spine is soft and supple. There is no meningismus. There is no cervical lymphadenopathy. CHEST: Clear to auscultation bilaterally. There are no rales, wheezes or rhonchi. HEART: Regular rate and rhythm. No murmurs, clicks, rubs or gallops. Procedures/MDM MDM: 23-year-old female presenting with sore throat. Patient will be discharged with supportive medications and antibiotics. There is questionable findings consistent with bacterial infection. Patient is told symptoms change or worsen to return immediately to the ER. All questions answered at discharge Departure Diagnosis: Primary Impression: Sore throat Condition: Stable Patient Instructions: When You Have a Sore Throat Referrals: [facility] YOU HAVE RECEIVED A MEDICAL SCREENING EXAM AND THE RESULTS INDICATE THAT YOU DO NOT HAVE A CONDITION THAT REQUIRES URGENT TREATMENT IN THE EMERGENCY DEPARTMENT. FURTHER EVALUATION AND TREATMENT OF YOUR CONDITION CAN WAIT UNTIL YOU ARE SEEN IN YOUR DOCTORS OFFICE WITHIN THE NEXT 1-2 DAYS. IT IS YOUR RESPONSIBILITY TO MAKE AN APPOINTMENT FOR FOLOW-UP CARE. IF YOU HAVE A PRIMARY DOCTOR --you should call your primary doctor and schedule an appointment IF YOU DO NOT HAVE A PRIMARY DOCTOR YOU CAN CALL OUR PHYSICIAN REFERRAL HOTLINE AT IF YOU CAN NOT AFFORD TO SEE A PHYSICIAN YOU CAN CHOSE FROM THE FOLLOWING [facility] [address] [facility] [address] [facility] [address] [facility] [address] [facility] [facility] [address] [facility]. [facility]. [address] Additional Instructions: FOLLOW UP WITH YOUR PRIMARY CARE PHYSICIAN TOMORROW.Return to this facility if you are not improving as expected. KENNETH FELIPE PA-C May 15, 2018 11:19
== END 2018-05-15 10:45 | disposition home or self-care (01) ==
LOC: FTE 08:44
DX: J02.9 Acute pharyngitis, unspecified (principal); Z79.84 Long term (current) use of oral hypoglycemic drugs
CPT/HCPCS: 99283

== ENCOUNTER 2018-09-09 17:31 | Emergency (ER) | payer OTHER ==
[~2018-09-09] VITALS: Ht 165.1 cm; Wt 108.0 kg
[~2018-09-09 17:31] MED LIST changes: +AMOX1TAB10 PO; +IBUP800T48 PO
[2018-09-09 17:35] VITALS: Ht 165.1 cm; Wt 108.0 kg
[2018-09-09] MEDS ORDERED: CEPH-443 PO (19:29)
[2018-09-09 19:47] VITALS: BP 123/77; PULSE 90; RESP 16
--- NOTE | 2018-09-10 01:49 | ERD ---
ER Documentation Chief Complaint Chief Complaint LEFT 1ST TOE INJURY X1 DAY HPI 23-year-old female presented to ED for possible ingrown toenail on left first big toe. Patient denies any allergies to medications states her only past medical history is diabetes. Patient takes metformin. States that the pain is mild and is worse when she presses on it. The patient's vitals show the patient is afebrile with normal pulse O2 saturations. Patient denies any chance of being ROS All systems reviewed and are negative except as per history of present illness. Medications Home Meds Active Scripts Cephalexin* (Keflex*) 500 Mg Capsule, 500 MG PO BID for 7 Days, CAP Prov:NICOLA CRISTINA PA-C 09/09/18 Ibuprofen* (Motrin*) 800 Mg Tab, 800 MG PO Q6, #30 TAB Prov:KENNETH FELIPE PA-C 05/15/18 Amoxicillin/Potassium Clav (Amox-Clav 875-125 mg Tablet) 875-125 mg Tab, 1 TAB PO BID for 7 Days, #14 TAB Prov:KENNETH FELIPE PA-C 05/15/18 Fluconazole* (Diflucan*) 150 Mg Tablet, 150 MG PO ONCE, #1 TAB Prov:BETTY,JUVENCIO 09/13/17 Acyclovir* (Acyclovir*) 400 Mg Tablet, 400 MG PO TID for 5 Days, #15 TAB Prov:BETTY,JUVENCIO 09/13/17 Reported Medications Metformin Hcl* (Metformin Hcl*) 500 Mg Tablet, 500 MG PO WITH BREAKFAST DINNE, #30 TAB 04/16/17 Allergies Allergies: Coded Allergies: No Known Allergy (Unverified , 04/16/17) PMhx/Soc Medical and Surgical Hx: pt denies Medical Hx, pt denies Surgical Hx History of Surgery: No Anesthesia Reaction: No Hx Neurological Disorder: No Hx Respiratory Disorders: No Hx Cardiac Disorders: No Hx Psychiatric Problems: No Hx Miscellaneous Medical Probl: No Hx Alcohol Use: Yes (socially) Hx Substance Use: No Hx Tobacco Use: No Smoking Status: Never smoker FmHx Family History: No diabetes, No coronary disease, No other Physical Exam Vitals Vital Signs Date Temp Pulse Resp B/P (MAP) Pulse Ox O2 O2 Flow FiO2 Time Delivery Rate 09/09/18 90 16 123/77 98 Room Air 19:47 (92) 09/09/18 97.1 97 17 129/73 98 17:35 (91) Physical Exam Const: No acute distress Head: Atraumatic Eyes: Normal Conjunctiva ENT: Normal External Ears, Nose and Mouth. Neck: Full range of motion. No meningismus. Resp: Clear to auscultation bilaterally Cardio: Regular rate and rhythm, no murmurs Abd: Soft, non tender, non distended. Normal bowel sounds Skin: No petechiae or rashes Back: No midline or flank tenderness Ext: No cyanosis, or edema, patient has small ingrown toenail on left foot first big toe Procedures/MDM Medical decision making: Patient is a 23-year-old female presented to ED for left toe pain. Patient denies any traumatic injury to the toe and states that it just hurts. Physical exam revealed a small ingrown toenail with no fluctuant abscess. I offered to remove the ingrown toenail but the patient prefers to be treated with outpatient antibiotics. Patient denied any allergies to medications. I feel comfortable with the patient being treated outpatient with good follow-up care. At this time I have low suspicion for fracture, osteomyelitis, sepsis, neurovascular injury. She is being discharged with prescription for Keflex and advised patient to follow-up with primary care provider in 1 to 2 days regarding this visit. Advised patient if symptoms worsen return to ER immediately or the patient is in agreement treatment plan and had no further questions upon discharge Prescription for home: Keflex I have discussed with the patient proper use and common side effects to expert with the medication . I advised the patient/family to speak with the pharmacist dispensing the medication to be advised of any potential drug interactions with other medication or supplements they may be taking. Discharge: At this time, patient is stable for discharge and outpatient management. I have instructed the patient to follow-up with his\her primary care physician in 1 to 2 days. I have discussed with the patient the possibility of needing to see a specialist for further work-up and imaging studies if symptoms persist. I have instructed the patient to promptly return to the ER for any new or worsening symptoms including increased pain, fever, nausea, vomiting, weakness or LOC. The patient and\or family expressed understanding of and agreement with this plan. All questions were answered. Home care instructions were provided. Disclaimer: Inadvertent spelling and grammatical errors are likely due to EHR\dictation software use and do not reflect on the overall quality of patient care. Also, please note that the electronic time recorded on the note does not necessarily r eflect the actual time of the patient encounter. Departure Diagnosis: Primary Impression: Ingrown toenail of left foot Condition: Stable Patient Instructions: Ingrown Toenail, Infected (Abx Only) Referrals: [facility] YOU HAVE RECEIVED A MEDICAL SCREENING EXAM AND THE RESULTS INDICATE THAT YOU DO NOT HAVE A CONDITION THAT REQUIRES URGENT TREATMENT IN THE EMERGENCY DEPARTMENT. FURTHER EVALUATION AND TREATMENT OF YOUR CONDITION CAN WAIT UNTIL YOU ARE SEEN IN YOUR DOCTORS OFFICE WITHIN THE NEXT 1-2 DAYS. IT IS YOUR RESPONSIBILITY TO MAKE AN APPOINTMENT FOR FOLOW-UP CARE. IF YOU HAVE A PRIMARY DOCTOR --you should call your primary doctor and schedule an appointment IF YOU DO NOT HAVE A PRIMARY DOCTOR YOU CAN CALL OUR PHYSICIAN REFERRAL HOTLINE AT IF YOU CAN NOT AFFORD TO SEE A PHYSICIAN YOU CAN CHOSE FROM THE FOLLOWING [facility] [address] [facility] [address] [facility] [facility] [address] [facility] [address] [facility] [address] [facility]. [facility]. [address] [facility]. [facility] YOU HAVE RECEIVED A MEDICAL SCREENING EXAM AND THE RESULTS INDICATE THAT YOU DO NOT HAVE A CONDITION THAT REQUIRES URGENT TREATMENT IN THE EMERGENCY DEPARTMENT. FURTHER EVALUATION AND TREATMENT OF YOUR CONDITION CAN WAIT UNTIL YOU ARE SEEN IN YOUR DOCTORS OFFICE WITHIN THE NEXT 1-2 DAYS. IT IS YOUR RESPONSIBILITY TO MAKE AN APPOINTMENT FOR FOLOW-UP CARE. IF YOU HAVE A PRIMARY DOCTOR --you should call your primary doctor and schedule and appointment IF YOU DO NOT HAVE A PRIMARY DOCTOR YOU CAN CALL OUR PHYSICIAN REFERRAL HOTLINE AT . IF YOU CAN NOT AFFORD TO SEE A PHYSICIAN YOU CAN CHOSE FROM THE FOLLOWING [facility] INSTITUTIONS: [facility] [address] [place] [address] [facility] [address] [place] [address] [facility] [address] [place] [address] Additional Instructions: Call your primary care doctor TOMORROW for an appointment during the next 1-2 days.See the doctor sooner or return here if your condition worsens before your appointment time. NICOLA CRISTINA PA-C Sep 10, 2018 01:49
== END 2018-09-09 19:48 | disposition home or self-care (01) ==
LOC: FTE 17:31
DX: L60.0 Ingrowing nail (principal); E11.9 Type 2 diabetes mellitus without complications; Z79.84 Long term (current) use of oral hypoglycemic drugs
CPT/HCPCS: 99283